=== PATIENT | female | born 1960 | race African-American/Black ===

== ENCOUNTER 2021-03-23 18:18 | Emergency (ER) | payer MEDICAID ==
[~2021-03-23] VITALS: Ht 160 cm; Wt 74.0 kg
[~2021-03-23 18:18] MED LIST: ATOR10TA69 MT; CHOL400D7 PO; GABA-532 MT; IBUP50DR2; IMIT50 PO; LISI2.5T47 MT; METO25TA6 PO; TRAM50TA3 PO; VITA250012 PO
[2021-03-23] MEDS ORDERED: ONDANSETRON HCL 4MG/2ML INJ IV STA (18:52)
[2021-03-23] MEDS ORDERED: SODIUM CHLORIDE 0.9% 1,000 ML IV ONE ×2 (19:00→22:30)
[2021-03-23] MEDS ORDERED: ASPIRIN 81MG TABLET PO ONE (19:00)
[2021-03-23] MEDS ORDERED: NITROGLYCERIN 0.4MG TABLET SL SL PRN (19:00)
[2021-03-23 19:23] LABS: BASOPHILS % 0.3 % (0.0-2.0); EOSINOPHILS % 0.4 % (0.0-5.0); HEMATOCRIT. 42.2 % (36.0-48.0); HEMOGLOBIN. 14.5 g/dL (12.0-16.0); LYMPHOCYTES % 14.8 % (20.0-50.0); MEAN CORPUSCULAR HEMOGLOBIN 31.5 pg (28.0-32.0); MEAN CORPUSCULAR VOLUME 91.8 fL (81.0-99.0); MEAN PLATELET VOLUME 10.1 fl (7.4-10.4); MONOCYTES % 8.7 % (2.0-8.0); NEUTROPHILS % 75.8 % (40.0-76.0); PLATELET 279 x1000/uL (130-400); RED BLOOD CELL COUNT 4.59 mill/uL (4.2-5.4); RED CELL DISTRIBUTION WIDTH 13.7 % (11.6-14.6)
[2021-03-23 19:30] LABS: CHLORIDE 111 mEq/L (98-107)
[2021-03-23 19:34] LABS: D-DIMER 0.64 mg/L FEU (<0.50); INR 1.1; PARTIAL THROMBOPLASTIN TIME 31.2 sec (23.4-31.0); PROTHROMBIN TIME 11.4 sec (9.6-11.0)
[2021-03-23] MEDS ORDERED: ACETAMINOPHEN 325MG TABLET PO ONE (20:00)
[2021-03-23] MEDS ORDERED: ENOXAPARIN 80MG/0.8ML SYR SUBCUT ONE (20:15)
[2021-03-24] VITALS: BP 135/98
== END 2021-03-24 00:19 | disposition short-term general hospital (02) ==
LOC: ER 18:18 → CANBEDREQ 03-24 14:34
DX: U07.1 COVID-19 (principal); R07.89 Other chest pain; I10 Essential (primary) hypertension; R11.2 Nausea with vomiting, unspecified; Z88.5 Allergy status to narcotic agent; Z79.899 Other long term (current) drug therapy; Z98.890 Other specified postprocedural states; Z90.710 Acquired absence of both cervix and uterus
CPT/HCPCS: 36415; 71045; 80053; 83605; 83880; 84484; 85025; 85379; 85610; 85730; 87040; 93005; 96361; 96372; 96374; 99285; C9803; J1650; J2405; J7030; U0003; U0005; Z7610

== ENCOUNTER 2025-01-24 10:21 | Inpatient (IN) | payer MEDICARE, MEDICAID ==
[~2025-01-24] VITALS: Ht 165.1 cm; Wt 90.1 kg
[~2025-01-24 10:21] MED LIST changes: +GABA-1180 MT; -GABA-532 MT
[2025-01-24 10:57] LABS: BASOPHILS % 0.4 % (0.0-2.0); EOSINOPHILS % 1.9 % (0.0-5.0); HEMATOCRIT. 42.8 % (36.0-48.0); HEMOGLOBIN. 14.3 g/dL (12.0-16.0); LYMPHOCYTES % 36.1 % (20.0-50.0); MEAN CORPUSCULAR HEMOGLOBIN 31.8 pg (28.0-32.0); MEAN CORPUSCULAR HGB CONC 33.6 g/dL (31.0-37.0); MEAN CORPUSCULAR VOLUME 94.7 fL (81.0-99.0); MEAN PLATELET VOLUME 9.8 fl (7.4-10.4); MONOCYTES % 9.2 % (2.0-8.0); NEUTROPHILS % 52.4 % (40.0-76.0); PLATELET 227 x1000/uL (130-400); RED BLOOD CELL COUNT 4.52 mill/uL (4.2-5.4); RED CELL DISTRIBUTION WIDTH 13.7 % (11.6-14.6); WHITE BLOOD COUNT 6.2 x1000/uL (4.5-11.0)
[2025-01-24 11:48] LABS: CHLORIDE 107 mEq/L (98-107); POTASSIUM 3.6 mEq/L (3.5-5.1); SODIUM 144 mEq/L (136-145)
[2025-01-24 11:49] LABS: CALCIUM 9.2 mg/dL (8.7-10.4); CARBON DIOXIDE 29 mEq/L (21-32)
[2025-01-24 11:54] LABS: CREATININE 0.6 mg/dL (0.6-1.0); GLUCOSE 108 mg/dL (70-105); UREA NITROGEN BLOOD 11 mg/dL (9-23)
[2025-01-24 12:43] LABS: ETHANOL BLOOD < 10 mg/dL (<10)
[2025-01-24 12:49] LABS: PROTHROMBIN TIME 10.5 sec (9.6-11.0)
[2025-01-24 12:52] LABS: TROPONIN I HIGH SENSITIVITY < 4 ng/L (3.0-34)
[2025-01-24 13:16] LABS: CLARITY URINE CLEAR (CLEAR); COLOR URINE YELLOW (YELLOW); GLUCOSE URINE NEGATIVE (NEGATIVE); KETONES URINE NEGATIVE (NEGATIVE); LEUKOCYTE ESTERASE URINE 1+ (NEGATIVE); NITRITE URINE NEGATIVE (NEGATIVE); OCCULT BLOOD URINE TRACE (NEGATIVE); PROTEIN URINE NEGATIVE (NEGATIVE); SPECIFIC GRAVITY URINE 1.037 (1.005-1.030); UROBILINOGEN URINE 0.2 E.U./dL (0.2-1.0)
[2025-01-24 13:35] LABS: MUCUS URINE TRACE /lpf (< = 2+); SQUAMOUS EPITHELIAL CELL URINE FEW /lpf (RARE/1+)
[2025-01-24 13:36] LABS: BACTERIA URINE TRACE; RBC URINE 0-2 /hpf (0-2)
[2025-01-24 13:53] LABS: *AMPHETAMINES SCREEN URINE NEGATIVE (NEGATIVE); *BARBITURATES SCREEN URINE NEGATIVE (NEGATIVE); *BENZODIAZEPINES SCREEN URINE NEGATIVE (NEGATIVE); *COCAINE SCREEN URINE NEGATIVE (NEGATIVE); CANNABINOID URINE SCREEN NEGATIVE (NEGATIVE); ECSTASY MDMA SCREEN URINE NEGATIVE (NEGATIVE); METHADONE URINE SCREEN NEGATIVE (NEGATIVE); OPIATES URINE SCREEN NEGATIVE (NEGATIVE); PHENCYCLIDINE URINE SCREEN NEGATIVE (NEGATIVE)
[2025-01-24 14:36] LABS: TROPONIN I HIGH SENSITIVITY < 4 ng/L (3.0-34)
[2025-01-24 15:00] VITALS: BP 170/82; PULSE 100; RESP 16; TEMP 36.6; O2SAT 97
[2025-01-24] MEDS ORDERED: ACETAMINOPHEN 325MG TABLET PO PRN ×2 (15:00)
[2025-01-24] MEDS ORDERED: HYDRALAZINE 20MG/ML VIAL IV PRN (15:00)
[2025-01-24] MEDS ORDERED: MAGNESIUM/ALUMINUM HYDROXIDE/SIMETHICONE 30ML UDC PO PRN (15:00)
[2025-01-24] MEDS ORDERED: ZOLPIDEM TARTRATE 5MG TABLET PO PRN (15:00)
[2025-01-24] MEDS ORDERED: DIPHENHYDRAMINE 50MG/ML VIAL IV PRN (15:00)
[2025-01-24] MEDS ORDERED: IOHEXOL-350 100 ML BOTTLE ONE (15:31)
[2025-01-24] MEDS: SUMATRIPTAN SUCCINATE 25MG TABLET PO SCH (15:34)
[2025-01-24] MEDS: CLONIDINE 0.1MG TABLET PO PRN (15:34)
[2025-01-24 16:00] VITALS: BP_SYST 134; BP_SYST 163; BP_DIAS 61; BP_DIAS 88; PULSE 113; PULSE 93; RESP 18; TEMP 36; TEMP 36.3; O2SAT 97; O2SAT 99
[2025-01-24 17:20] LABS: HEPATITIS B SURFACE ANTIGEN NEGATIVE (Negative)
[2025-01-24 17:41] LABS: HEPATITIS C AB NON REACTIVE (Neg) (Negative)
[2025-01-24] MEDS: ENOXAPARIN 30MG/0.3ML SYR SUBCUT SCH (18:00)
[2025-01-24] MEDS ORDERED: NALOXONE HCL 0.4MG/ML VIAL IV PRN (19:15)
[2025-01-24 20:00] VITALS: BP 131/71; PULSE 64; RESP 18; TEMP 36.7; O2SAT 98
[2025-01-24] MEDS: HYDROMORPHONE HCL/PF 1MG/ML INJ IV PRN (20:22)
[2025-01-24] MEDS: SODIUM CHLORIDE 0.9% 3ML FLUSH IVF SCH (20:23)
[2025-01-24] MEDS: LISINOPRIL 20MG TABLET PO SCH (21:57)
[2025-01-24] MEDS: GABAPENTIN 300MG CAPSULE PO SCH (21:57)
[2025-01-25] VITALS: BP 163/57; PULSE 64; RESP 19; TEMP 36.5; O2SAT 98
[2025-01-25 04:00] VITALS: BP 136/67; PULSE 66; RESP 19; TEMP 36.4; O2SAT 98
[2025-01-25 08:00] VITALS: BP 164/87; PULSE 61; RESP 18; TEMP 36.1; O2SAT 98
[2025-01-25] MEDS: HYDROCHLOROTHIAZIDE 25MG TABLET PO SCH (08:30)
[2025-01-25] MEDS: ONDANSETRON HCL 4MG/2ML INJ IV PRN (08:30)
[2025-01-25] MEDS: KETOROLAC 30MG/ML VIAL IV PRN (11:36)
[2025-01-25 12:00] VITALS: BP 137/72; PULSE 62; RESP 18; TEMP 36.4; O2SAT 98
[2025-01-25 16:04] VITALS: BP 137/137; PULSE 62; TEMP 97.6; O2SAT 72
[2025-01-25] MEDS: ASPIRIN/ACETAMINOPHEN/CAFFEINE 250/250/65MG TABLET PO PRN (16:22)
== END 2025-01-25 16:25 | disposition home or self-care (01) | DRG 103 ==
LOC: ER 10:21 → 7WST 12:26 → EDBEDREQ 12:40 → EDBEDREQTM 12:40
PROVIDERS: ADMIT Internal Medicine; ATTEND Internal Medicine
DX: G43.909 Migraine, unspecified, not intractable, without status migrainosus (principal); I10 Essential (primary) hypertension; F32.A Depression, unspecified; F41.9 Anxiety disorder, unspecified; Z88.5 Allergy status to narcotic agent; Z90.710 Acquired absence of both cervix and uterus; K64.4 Residual hemorrhoidal skin tags
CPT/HCPCS: 36415; 70496; 70498; 70551; 71045; 80048; 80305; 80320; 81003; 82962; 84484; 85025; 86705; 86850; 86900; 87340; 93005; 99291; J1171; J1650; J1885; J2405; Q9967; G0480